=== PATIENT | female | born 1965 | race Caucasian/White ===

== ENCOUNTER 2018-04-13 20:44 | Emergency (ER) | payer OTHER ==
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
[2018-04-13] MEDS ORDERED: MANNITOL 100 GM/500 ML BAG IVS ONE ×3 (21:11→21:20)
[2018-04-13] MEDS ORDERED: MANNITOL ONE (21:17)
--- NOTE | 2018-04-13 21:59 | CT ---
EXAM DESCRIPTION: Head CLINICAL HISTORY: recurrent seizures COMPARISON: MRI brain July 15, 2008 TECHNIQUE: Multiple helical axial tomographic images were obtained of the head without intravenous contrast. This exam was performed according to our departmental dose-optimization program, which includes automated exposure control, adjustment of the mA and/or kV according to patient size and/or use of iterative reconstruction technique. FINDINGS: There is no acute intracranial hemorrhage. No mass. No midline shift. No ventriculomegaly. Crawford-white matter differentiation is maintained. Minimal left maxillary sinus mucosal thickening is present. Mastoid air cells and middle ear spaces are clear. Orbits and orbital contents are unremarkable. Osseous structures are unremarkable. Surrounding soft tissues are unremarkable. IMPRESSION: No acute intracranial process. Electronically signed by: Balwinder Fernandez MD 04/13/2018 9:58 PM CDT
[2018-04-14 01:41] VITALS: TEMP 97.4
[2018-04-14 02:01] VITALS: BP 116/77; O2SAT 97
== END 2018-04-14 02:25 | disposition home or self-care (01) ==
LOC: ER 20:44
DX: R56.9 Unspecified convulsions (principal); Z87.820 Personal history of traumatic brain injury; M32.9 Systemic lupus erythematosus, unspecified; C50.911 Malignant neoplasm of unspecified site of right female breast; Z85.038 Personal history of other malignant neoplasm of large intestine; Z79.899 Other long term (current) drug therapy